=== PATIENT | male | born 1945 | race Caucasian/White ===

== ENCOUNTER 2017-04-09 11:28 | Outpatient (CLI) | payer MEDICARE, OTHER ==
[2017-04-09 20:18] LABS: BASOPHILS # (AUTO) 0.1 10^3/uL (0.0-0.1); EOSINOPHILS # (AUTO) 0.3 10^3/uL (0.0-0.7); EOSINOPHILS % (AUTO) 4.7 %; LYMPHOCYTES # (AUTO) 1.6 10^3/uL (1.5-3.5); LYMPHOCYTES % (AUTO) 28.4 %; MEAN CORPUSCULAR HEMOGLOBIN 30.8 pg (27.0-31.0); MEAN CORPUSCULAR HGB CONC 32.5 g/dL (32.0-36.0); MEAN CORPUSCULAR VOLUME 94.5 fL (80.0-94.0); MEAN PLATELET VOLUME 10.2 fL (7.4-11.4); MONOCYTES # (AUTO) 0.5 10^3/uL (0.0-1.0); NEUTROPHILS # (AUTO) 3.1 10^3/uL (1.5-6.6); NEUTROPHILS % (AUTO) 55.9 %; NUCLEATED RED BLOOD CELLS AUTO 0.2 /100WBC; RED BLOOD COUNT 4.55 10^6/uL (4.70-6.10); RED CELL DISTRIBUTION WIDTH 13.9 % (12.0-15.0); UNCORRECTED WHITE BLOOD COUNT 5.5 x10^3/uL; WHITE BLOOD COUNT 5.5 x10^3/uL (4.8-10.8)
[2017-04-09 20:36] LABS: ALBUMIN/GLOBULIN RATIO 1.6 (1.0-2.2); BILIRUBIN,TOTAL 0.8 mg/dL (0.2-1.0); BUN - BLOOD UREA NITROGEN 9 mg/dL (6-20); CALCIUM 9.7 mg/dL (8.5-10.3); CARBON DIOXIDE - CO2 30 mmol/L (21-32); CHLORIDE 102 mmol/L (101-111); CHOL/HDL RATIO 3.9 (<5.0); CHOLESTEROL 201 mg/dL; CREATININE 0.8 mg/dL (0.6-1.2); GFR - MDRD 96 (>89); GLUCOSE 92 mg/dL (70-100); HDL CHOLESTEROL 52 mg/dL; LDL/HDL RATIO 2.1 (<3.6); POTASSIUM 4.6 mmol/L (3.5-5.0); SODIUM 141 mmol/L (135-145); TOTAL PROTEIN 7.4 g/dL (6.7-8.2); TRIGLYCERIDES 209 mg/dL; VLDL CHOLESTEROL 42 mg/dL
== END 2017-04-09 11:29 | disposition home or self-care (01) ==
LOC: LAB.WCP 11:28
PROVIDERS: ATTEND Family Medicine
DX: I10 Essential (primary) hypertension (principal); E78.1 Pure hyperglyceridemia; R00.2 Palpitations
CPT/HCPCS: 36415; 80053; 80061; 84443; 85025

== ENCOUNTER 2017-04-11 11:01 | Outpatient (CLI) | payer MEDICARE, OTHER | END 2017-04-11 11:02 | disposition EMS.NT | LOC: EMS 11:01 | PROVIDERS: ATTEND Surgery | DX: R00.2 Palpitations (principal) ==

== ENCOUNTER 2017-05-29 07:43 | Outpatient (CLI) | payer MEDICARE, OTHER ==
[2017-05-29 13:23] LABS: ALBUMIN 4.3 g/dL (3.2-5.5); ALBUMIN/GLOBULIN RATIO 1.7 (1.0-2.2); ALKALINE PHOSPHATASE 48 IU/L (42-121); ALT ALANINE AMINOTRANSFERASE 16 IU/L (10-60); AST ASPARTATE AMINOTRANSFERASE 21 IU/L (10-42); BILIRUBIN,TOTAL 0.6 mg/dL (0.2-1.0); BUN - BLOOD UREA NITROGEN 14 mg/dL (6-20); CALCIUM 9.1 mg/dL (8.5-10.3); CARBON DIOXIDE - CO2 29 mmol/L (21-32); CHLORIDE 105 mmol/L (101-111); CHOL/HDL RATIO 3.7 (<5.0); CHOLESTEROL 183 mg/dL; CREATININE 0.8 mg/dL (0.6-1.2); GFR - MDRD 96 (>89); GLUCOSE 90 mg/dL (70-100); HDL CHOLESTEROL 50 mg/dL; LDL CHOLESTEROL,CALCULATED 112 mg/dL; LDL/HDL RATIO 2.2 (<3.6); MAGNESIUM 1.9 mg/dL (1.7-2.8); SODIUM 140 mmol/L (135-145); TOTAL PROTEIN 6.9 g/dL (6.7-8.2); VLDL CHOLESTEROL 21 mg/dL
== END 2017-05-29 07:44 | disposition home or self-care (01) ==
LOC: LAB.WCP 07:43
PROVIDERS: ATTEND Internal Medicine Cardiovascular Disease
DX: R00.2 Palpitations (principal); I10 Essential (primary) hypertension
CPT/HCPCS: 36415; 80053; 80061; 83721; 83735

== ENCOUNTER 2018-12-03 08:34 | Outpatient (CLI) | payer MEDICARE, OTHER ==
[2018-12-03] MEDS ORDERED: GADOBUTROL 10 MMOL/10 ML VIAL ONE (09:18)
[2018-12-03] MEDS ORDERED: GADOBUTROL 10 MMOL/10 ML VIAL IVP ONE (09:36)
--- NOTE | 2018-12-03 11:21 | MRI Report ---
Reason: FAMILY HX OF MULTIPLE SCLEROSIS,NUMBNESS, HAND, AF Procedure Date: 12/03/2018 Accession Number: [id number] / [id number] Procedure: MRI - Brain W/WO CPT Code: FULL RESULT: EXAM: MRI BRAIN WITHOUT AND WITH CONTRAST EXAM DATE: 12/03/2018 10:22 AM. CLINICAL HISTORY: 73-year-old man with numbness of the hand and family history of multiple sclerosis. COMPARISON: BRAIN W/WO 02/27/2014 3:04 PM. TECHNIQUE: Multiplanar, multisequence T1-weighted and fluid-sensitive MR sequences of the brain were performed. Sequences optimized for routine evaluation. Other: None. IV Contrast: 8.5 cc Gadavist. FINDINGS: Parenchyma: Prominent focus of FLAIR hyperintensity with corresponding T1 hypointensity is present in the left frontal periventricular white matter and corpus callosum and radiates away from the ventricle, new compared to the 02/27/2014 exam. Multiple additional smaller foci of nonspecific FLAIR hyperintensity with variable T1 hypointensity are present in the periventricular and subcortical white matter of the supratentorial parenchyma, overall progressed. No definite lesions are identified in the infratentorial parenchyma. No evidence of hemorrhage on susceptibility weighted sequence. No abnormal enhancement. Pituitary: Unremarkable. Ventricles and Extra-axial Spaces: Ventricles are symmetric and normal in size for age, unchanged. Extra-axial spaces are unremarkable. No abnormal enhancement. Orbits: Unremarkable except for bilateral lens replacement surgery. Sinuses: Mild mucosal thickening is present in the paranasal sinuses. Mastoid air cells are clear. Major Vascular Flow Voids: Intact. Dural Venous Sinuses and Major Central Veins: Patent on post-contrast images. IMPRESSION: 1. Prominent focus of FLAIR hyperintensity with corresponding T1 hypointensity is present in the left frontal periventricular white matter radiating away from the ventricle, new compared to the 02/27/2014 exam. Location and appearance are suggestive of a demyelinating plaque, but sequelae of chronic small vessel ischemic disease could have a similar appearance. Multiple additional smaller lesions in the periventricular and subcortical white matter are present, nonspecific in appearance but progressed compared to the 2013 exam. No abnormal enhancement. [facility]
== END 2018-12-03 08:35 | disposition home or self-care (01) ==
LOC: DI 08:34
PROVIDERS: ATTEND Family Medicine
DX: G93.9 Disorder of brain, unspecified (principal); R20.2 Paresthesia of skin; R25.1 Tremor, unspecified; I48.0 Paroxysmal atrial fibrillation; Z86.73 Personal history of transient ischemic attack (TIA), and cerebral infarction without residual deficits; Z84.89 Family history of other specified conditions
CPT/HCPCS: 70553; A9585

== ENCOUNTER 2021-02-20 14:05 | Outpatient (CLI) | payer MEDICARE, OTHER ==
[2021-02-20 18:09] LABS: BASOPHILS # (AUTO) 0.1 10^3/uL (0.0-0.1); BASOPHILS % (AUTO) 0.8 %; EOSINOPHILS # (AUTO) 0.2 10^3/uL (0.0-0.7); EOSINOPHILS % (AUTO) 3.8 %; HCT - HEMATOCRIT 46.3 % (42.0-52.0); HGB - HEMOGLOBIN 15.1 g/dL (14.0-18.0); LYMPHOCYTES # (AUTO) 1.4 10^3/uL (1.5-3.5); LYMPHOCYTES % (AUTO) 22.2 %; MEAN CORPUSCULAR HEMOGLOBIN 31.6 pg (27.0-31.0); MEAN CORPUSCULAR HGB CONC 32.6 g/dL (32.0-36.0); MEAN CORPUSCULAR VOLUME 96.9 fL (80.0-94.0); MEAN PLATELET VOLUME 12.1 fL (7.4-11.4); MONOCYTES # (AUTO) 0.5 10^3/uL (0.0-1.0); MONOCYTES % (AUTO) 8.3 %; NEUTROPHILS % (AUTO) 64.6 %; PLT - PLATELET COUNT 156 10^3/uL (130-450); RED BLOOD COUNT 4.78 10^6/uL (4.70-6.10); RED CELL DISTRIBUTION WIDTH 12.1 % (12.0-15.0); WHITE BLOOD COUNT 6.3 x10^3/uL (4.8-10.8)
[2021-02-20 18:30] LABS: ALBUMIN 4.5 g/dL (3.2-5.5); ALBUMIN/GLOBULIN RATIO 1.6 (1.0-2.2); ALKALINE PHOSPHATASE 50 IU/L (42-121); ALT ALANINE AMINOTRANSFERASE < 10 IU/L (10-60); AST ASPARTATE AMINOTRANSFERASE 20 IU/L (10-42); BILIRUBIN,TOTAL 0.9 mg/dL (0.2-1.0); BUN - BLOOD UREA NITROGEN 17 mg/dL (6-20); CALCIUM 9.3 mg/dL (8.5-10.3); CARBON DIOXIDE - CO2 30 mmol/L (21-32); CHLORIDE 100 mmol/L (101-111); CHOL/HDL RATIO 4.7 (<5.0); CHOLESTEROL 220 mg/dL; CREATININE 0.8 mg/dL (0.6-1.2); GFR - MDRD 94 (>89); GLUCOSE 90 mg/dL (70-100); HDL CHOLESTEROL 47 mg/dL; LDL CHOLESTEROL,CALCULATED 137 mg/dL; LDL/HDL RATIO 2.9 (<3.6); POTASSIUM 4.5 mmol/L (3.5-5.0); SODIUM 140 mmol/L (135-145); TOTAL PROTEIN 7.4 g/dL (6.7-8.2); TRIGLYCERIDES 179 mg/dL; VLDL CHOLESTEROL 36 mg/dL
== END 2021-02-20 23:59 | disposition home or self-care (01) ==
LOC: LAB.WCP 14:05
PROVIDERS: ATTEND Nurse Practitioner Family
DX: I42.9 Cardiomyopathy, unspecified (principal); R00.2 Palpitations; I47.1 Supraventricular tachycardia; E78.1 Pure hyperglyceridemia; R94.31 Abnormal electrocardiogram [ECG] [EKG]
CPT/HCPCS: 36415; 80053; 80061; 83721; 85025